=== PATIENT | male | born 1970 | race Caucasian/White ===

== ENCOUNTER 2018-11-28 09:13 | Day surgery (SDC) | payer BC ==
[2018-11-23 08:35] VITALS: BMI 33.5
--- NOTE | 2018-11-28 07:58 | P.GSHP ---
History of Present Illness H&P Date: 11/28/18 CHIEF COMPLAINT: Colon screen HISTORY OF PRESENT ILLNESS: The patient is a 48-year-old male who presents for colon screen. Lower endoscopy was offered for further evaluation and management. PAST MEDICAL HISTORY: Please see list. PAST SURGICAL HISTORY: Please see list. MEDICATIONS: Please see list. ALLERGIES: Please see list. SOCIAL HISTORY: No illicit drug use FAMILY HISTORY: No reports of Crohn disease or ulcerative colitis. REVIEW OF ORGAN SYSTEMS: CONSTITUTIONAL: No reports of fevers or chills. PHYSICAL EXAM: VITAL SIGNS: Stable GENERAL: Well-developed pleasant in no acute distress. HEENT: No scleral icterus. Extraocular movements grossly intact. Moist buccal mucosa. NECK: Supple without lymphadenopathy. CHEST: Unlabored respirations. Equal bilateral excursions. CARDIOVASCULAR: Regular rate and rhythm. Distal 2+ pulses. ABDOMEN: Soft, nontender, nondistended. MUSCULOSKELETAL: No clubbing, cyanosis, or edema. ASSESSMENT: 1. Colon screen. PLAN: 1. Recommend proceeding with a lower endoscopy Past Medical History Past Medical History: No Reported History History of Any Multi-Drug Resistant Organisms: None Reported Past Surgical History: Appendectomy, Orthopedic Surgery Additional Past Surgical History / Comment(s): arthroscopy rt knee 3 weeks ago, surgery on left index finger, Past Anesthesia/Blood Transfusion Reactions: No Reported Reaction Smoking Status: Never smoker - Past Family History Mother Family Medical History: No Reported History Medications and Allergies Home Medications Medication Instructions Recorded Confirmed Type Cholecalciferol (Vitamin D3) 2,000 unit PO DAILY 11/23/18 11/23/18 History [Vitamin D3] Naproxen Sodium [Aleve] 220 mg PO Q12HR PRN 11/23/18 11/23/18 History Allergies Allergy/AdvReac Type Severity Reaction Status Date / Time No Known Allergies Allergy Verified 11/23/18 08:29
[~2018-11-28 09:13] MED LIST: LACTATED RINGERS 1,000 ML IV SCH; LIDOCAINE 1% 20 ML VIAL (10MG/ML) FOR IV START INTRADERMA PRN
[2018-11-28 09:37] VITALS: TEMP 97.4
[2018-11-28] MEDS ORDERED: PROPOFOL 10 MG/ML 20 ML VIAL IV ONE (10:04)
--- NOTE | 2018-11-28 10:37 | P.PCN ---
Date of Procedure: 11/28/18 Description of Procedure: PREOPERATIVE DIAGNOSIS: Colonoscopy screening, initial POSTOPERATIVE DIAGNOSIS: Colonoscopy screening, initial Rectal polyp External hemorrhoids OPERATION: Colonoscopy to the ileocecal valve and appendiceal orifice. Colonoscopy with cold forceps biopsy, rectum SURGEON: Noemi Gold MD. ANESTHESIA: MAC. INDICATIONS: The patient is a 48-year-old male who presents for colonoscopy screening. He presents for his first colonoscopy. Benefits and risks were described and informed consent was obtained. DESCRIPTION OF PROCEDURE: The patient had undergone Suprep. He had been brought into the operating room and laid in the left lateral decubitus position. After adequate intravenous sedation, the rectum was examined with 2% lidocaine jelly. External hemorrhoids were encountered. The rectal tone was within normal limits. Small lesions were palpated at the anal canal. An Olympus colonoscope was advanced until the ileocecal valve and appendiceal orifice were clearly viewed. The prep was good with clear visualization of the mucosal folds. The scope was removed with visualization of each mucosal fold. No scattered diverticulosis was encountered. Colonic polyps were found in cold forceps biopsy at rectum. No evidence of focal colitis was found. Retroflexion of the scope demonstrated grade 1 internal hemorrhoids without active bleeding or inflammation. The colon was desufflated. The patient had tolerated the procedure well. Withdrawal time was over 6 minutes. FINDINGS: Aronchick preparation quality scale 1 (1-5) Internal hemorrhoids, grade 1 Colonic polyp 3-mm hyperplastic was addressed with cold forceps biopsy at rectum. External prolapsed hemorrhoids, stage 2 No arteriovenous malformations. No adenomatous polyps. No focal colitis. Small lesions were palpated at the anal canal. RECOMMENDATIONS: Lower endoscopy in 5 years, 2023 Plan - Discharge Summary Discharge Rx Participant: No New Discharge Prescriptions: No Action Naproxen Sodium [Aleve] 220 mg PO Q12HR PRN PRN Reason: Pain Cholecalciferol (Vitamin D3) [Vitamin D3] 2,000 unit PO DAILY Discharge Medication List Cholecalciferol (Vitamin D3) [Vitamin D3] 2,000 unit PO DAILY 11/23/18 [History] Naproxen Sodium [Aleve] 220 mg PO Q12HR PRN 11/23/18 [History] Follow up Appointment(s)/Referral(s): Noemi Gold MD [STAFF PHYSICIAN] - 12/11/18 Patient Instructions/Handouts: Colorectal Polyps (DC) Activity/Diet/Wound Care/Special Instructions: Repeat colonoscopy in 5 years, 2023 Discharge Disposition: HOME SELF-CARE
[2018-11-28 10:58] VITALS: BP 130/72; PULSE 64; RESP 18
== END 2018-11-28 11:08 | disposition home or self-care (01) ==
LOC: ORWHC2ENDO 09:13
PROVIDERS: ATTEND Surgery Plastic and Reconstructive Surgery
DX: Z12.11 Encounter for screening for malignant neoplasm of colon (principal); K62.1 Rectal polyp; Z90.49 Acquired absence of other specified parts of digestive tract
CPT/HCPCS: 88305; 45380; J2704

== ENCOUNTER 2023-09-27 09:40 | Day surgery (SDC) | payer BC ==
--- NOTE | 2023-09-27 07:39 | P.GSHP ---
History of Present Illness H&P Date: 09/27/23 CHIEF COMPLAINT: Colon screen HISTORY OF PRESENT ILLNESS: The patient is a 52-year-old male who presents for colon screen. Lower endoscopy was offered for further evaluation and management. PAST MEDICAL HISTORY: Please see list. PAST SURGICAL HISTORY: Please see list. MEDICATIONS: Please see list. ALLERGIES: Please see list. SOCIAL HISTORY: No illicit drug use FAMILY HISTORY: No reports of Crohn disease or ulcerative colitis. REVIEW OF ORGAN SYSTEMS: CONSTITUTIONAL: No reports of fevers or chills. PHYSICAL EXAM: VITAL SIGNS: Stable GENERAL: Well-developed pleasant in no acute distress. HEENT: No scleral icterus. Extraocular movements grossly intact. Moist buccal mucosa. NECK: Supple without lymphadenopathy. CHEST: Unlabored respirations. Equal bilateral excursions. CARDIOVASCULAR: Regular rate and rhythm. Distal 2+ pulses. ABDOMEN: Soft, nontender, nondistended. MUSCULOSKELETAL: No clubbing, cyanosis, or edema. ASSESSMENT: 1. Colon screen. PLAN: 1. Recommend proceeding with a lower endoscopy Past Medical History Past Medical History: No Reported History, Osteoarthritis (OA) History of Any Multi-Drug Resistant Organisms: None Reported Past Surgical History: Appendectomy, Orthopedic Surgery Additional Past Surgical History / Comment(s): arthroscopy rt knee 3 yrs ago, surgery on left index finger, Past Anesthesia/Blood Transfusion Reactions: No Reported Reaction Smoking Status: Never smoker - Past Family History Mother Family Medical History: No Reported History Medications and Allergies Home Medications Medication Instructions Recorded Confirmed Type Naproxen Sodium [Aleve] 220 mg PO Q12HR PRN 11/23/18 09/25/23 History Allergies Allergy/AdvReac Type Severity Reaction Status Date / Time No Known Allergies Allergy Verified 09/25/23 10:45
[2023-09-27] MEDS: LACTATED RINGERS 1,000 ML IV SCH (10:08)
[2023-09-27] MEDS ORDERED: PROPOFOL 10 MG/ML 20 ML VIAL IV ONE (10:17)
[2023-09-27 10:19] VITALS: RESP 16; TEMP 97
--- NOTE | 2023-09-27 10:53 | P.PCN ---
Date of Procedure: 09/27/23 Description of Procedure: PREOPERATIVE DIAGNOSIS: Colonoscopy screening. Personal history colon polyp POSTOPERATIVE DIAGNOSIS: Colonoscopy screening. OPERATION: Colonoscopy to the cecum, ileocecal valve and appendiceal orifice. SURGEON: Noemi Gold MD. ANESTHESIA: MAC. INDICATIONS: The patient is a 52-year-old male who presents for colonoscopy screening. Benefits and risks were described and informed consent was obtained. DESCRIPTION OF PROCEDURE: The patient had undergone Sutab prep. The patient had been brought into the operating room and laid in the left lateral decubitus position. After adequate intravenous sedation, the rectum was examined with 2% lidocaine jelly. External hemorrhoids were encountered. The rectal tone was within normal limits. No lesions were palpated in the rectal vault. An Olympus colonoscope was advanced until the cecum, ileocecal valve and appendiceal orifice were clearly viewed. The prep was fair. No scattered diverticulosis was encountered. No colonic polyps were found. No evidence of focal colitis was found. Retroflexion of the scope demonstrated grade 1 internal hemorrhoids without active bleeding or inflammation. The colon was desufflated. The patient had tolerated the procedure well. Withdrawal time was over 6 minutes. FINDINGS: Aronchick preparation quality scale 3 (1-5) Internal hemorrhoids, grade 2 External prolapsed hemorrhoids, grade 2 No arteriovenous malformations. No adenomatous polyps. No focal colitis. No sigmoid diverticulosis RECOMMENDATIONS: Lower endoscopy 2028 Plan - Discharge Summary Discharge Rx Participant: No New Discharge Prescriptions: Continue Naproxen Sodium [Aleve] 220 mg PO Q12HR PRN PRN Reason: Pain Discharge Medication List Naproxen Sodium [Aleve] 220 mg PO Q12HR PRN 11/23/18 [History] Follow up Appointment(s)/Referral(s): Noemi Gold MD [STAFF PHYSICIAN] - As Needed Patient Instructions/Handouts: Moderate Sedation (GEN) Activity/Diet/Wound Care/Special Instructions: Repeat colonoscopy 2028 Discharge Disposition: HOME SELF-CARE
[2023-09-27 11:33] VITALS: BP 104/63; PULSE 54
== END 2023-09-27 12:05 | disposition home or self-care (01) ==
LOC: ORWHC2ENDO 09:40
PROVIDERS: ATTEND Surgery Plastic and Reconstructive Surgery
DX: Z12.11 Encounter for screening for malignant neoplasm of colon (principal); K64.1 Second degree hemorrhoids; K64.4 Residual hemorrhoidal skin tags; Z86.010 Personal history of colon polyps; Z90.49 Acquired absence of other specified parts of digestive tract; Z98.890 Other specified postprocedural states; Z79.899 Other long term (current) drug therapy
CPT/HCPCS: 45378; J2704